=== PATIENT | male | born 1960 | race Caucasian/White ===

== ENCOUNTER 2020-07-07 12:49 | Emergency (ER) | payer OTHER ==
[2020-07-07 13:06] VITALS: BP 149/88; PULSE 85; TEMP 98.9; BMI 32.1
[2020-07-07] MEDS ORDERED: ACETAMINOPHEN 500 MG TABLET (FP) PO ONE (13:28)
== END 2020-07-07 15:40 | disposition home or self-care (01) ==
LOC: JER 12:49
DX: R51.9 Headache, unspecified (principal); M54.2 Cervicalgia
CPT/HCPCS: 72125-TC; 99283-25

== ENCOUNTER 2020-08-03 16:32 | Emergency (ER) | payer OTHER ==
[2020-08-03 16:55] VITALS: TEMP 98.5; BMI 32.1
[2020-08-03 18:21] VITALS: BP 143/76
[2020-08-03 18:22] LABS: BASO % 0.6 % (0-2.0); EOS % 1.3 % (0-4.5); HEMATOCRIT 42.3 % (35.4-49); HEMOGLOBIN 14.6 GM/dL (11.7-16.9); LYMPH % 33.5 % (8-40); MCH 31.1 pg (25.7-33.7); MCHC 34.5 g/dl (32.0-35.9); MEAN CELL VOLUME 90.3 fl (80-96); MEAN PLT VOLUME 7.7 fl (7.5-11.1); MONO % 8.1 % (3.8-10.2); NEUT % 56.5 % (42.8-82.8); PLATELET COUNT 257 K/MM3 (134-434); RBC 4.68 M/mm3 (4.00-5.60); RDW 14.4 % (11.9-15.9); WHITE BLOOD COUNT 6.6 K/mm3 (4.0-10.0)
[2020-08-03 18:31] LABS: CHLORIDE 106 mmol/L (98-107); SODIUM 140 mmol/L (136-145)
[2020-08-03 18:33] LABS: ALBUMIN 3.8 g/dl (3.4-5.0); ANION GAP 5 MMOL/L (8-16); BLOOD UREA NITROGEN 11.8 mg/dL (7-18); CALCIUM 9.1 mg/dL (8.5-10.1); CO2 29 mmol/L (21-32); MAGNESIUM 2.3 mg/dL (1.8-2.4)
[2020-08-03 18:34] LABS: GLUCOSE,RANDOM 104 mg/dL (74-106)
[2020-08-03 18:36] LABS: SGOT/AST 36 U/L (15-37); SGPT/ALT 50 U/L (13-61)
[2020-08-03 18:37] LABS: CREATININE 0.7 mg/dL (0.55-1.3)
[2020-08-03 18:38] LABS: BILIRUBIN,TOTAL 0.4 mg/dL (0.2-1); TOT PROT 7.6 g/dl (6.4-8.2)
[2020-08-03 18:39] LABS: ALK PHOS 92 U/L (45-117)
[2020-08-03 19:52] VITALS: PULSE 82
== END 2020-08-03 20:10 | disposition home or self-care (01) ==
LOC: JER 16:32
DX: R07.9 Chest pain, unspecified (principal)
CPT/HCPCS: 36415; 71046-TC-FY; 80053; 83735; 84484; 85025; 93005; 93010; 99284-25